=== PATIENT | female | born 1975 | race Caucasian/White ===

== ENCOUNTER 2016-09-15 19:40 | Emergency (ER) | payer OTHER ==
[2016-09-15 20:01] VITALS: BP 138/87
[2016-09-15] MEDS ORDERED: Ibuprofen 800 MG Tab PO ONE (20:20)
--- NOTE | 2016-09-15 20:30 | EDM.PDOC ---
ED HISTORY OF PRESENT ILLNESS - General Chief Complaint: Cardiovascular Problem Stated Complaint: HEART Time Seen by Provider: 09/15/16 20:15 Source: Reports: Patient History Limitations: Reports: No limitations - History of Present Illness INITIAL COMMENTS - FREE TEXT/NARRATIVE: Pt reports she developed fever, dry cough and sore throat this AM. She noted some palpitations and turned on her activity monitor on her wrist and device read 55 and then jumped up to 138. She has hx of asthma and albuterol inhaler on her person but she did not try this for symptoms today. Severity: mild Location, General: Reports: other (throat) Improves with: Reports: None Worsens with: Reports: None Context, General: Reports: Sick contact (works at [employer] and constant exposure to public) Associated Symptoms: Reports: cough, fever/chills, loss of appetite, nausea/ vomiting (nausea without vomiting) - Related Data Allergies/ADRs: Allergies Allergy/AdvReac Type Severity Reaction Status Date / Time No Known Allergies Allergy Verified 09/15/16 20:02 Home Meds: Home Meds Albuterol [Proair HFA] 2 puff INH Q4HR PRN 03/19/14 [History] Omeprazole [Prilosec] 20 mg PO DAILY 05/22/14 [History] Mometasone/Formoterol [Dulera 200 MCG/5 MCG] 2 puff INH BID 06/14/14 [History] Ibuprofen [Motrin] 800 mg PO Q8H PRN 07/02/15 [History] Ipratropium [Atrovent 0.06% Nasal Rapelje] 2 sprays DELON TID PRN 07/02/15 [History] Multivitamin [Multiple Vitamins] 1 tab PO BID 07/02/15 [History] Calcium Carbonate/Vitamin D3 [Calcium 500 mg Chewable Tablet] 1 tab PO BID 09/10 [History] Cyanocobalamin (Vitamin B12) [Vitamin B12] 1 tab SL DAILY 09/10/16 [History] Fluticasone Propionate [Flonase] 2 spray DELON DAILY 09/10/16 [History] L.acidoph,Paracasei, B.lactis [Probiotic] 1 tab PO DAILY 09/10/16 [History] Montelukast [Singulair] 1 tab PO BEDTIME 09/10/16 [History] Past Medical History Respiratory History: Reports: Asthma Gastrointestinal History: Reports: Cholelithiasis, Inflammatory bowel disease, Other (see below) Other Gastrointestinal History: Biliary dyskinesia. Abdominal pain with CT and contrast on 07/02/2015 LIVE IN COMPANION History: Reports: Other (see below) Other OB/BYN History: Dysplasia of cervix, low grade Musculoskeletal History: Reports: Arthritis, Back pain, chronic Endocrine/Metabolic History: Reports: Other (see below) Other Endocrine/Metabolic History: Found an adrenal mass and watching it for size change - Infectious Disease History Infectious Disease History: Reports: Chicken pox - Past Surgical History GI Surgical History: Reports: Cholecystectomy, Colonoscopy, Other (see below) Other GI Surgeries/Procedures: Inflammatory polyp - 2014 Female Surgical History: Reports: Tubal ligation Social & Family History - Family History Family Medical History: Noncontributory - Tobacco Use Smoking Status *Q: Never Smoker Years of Tobacco use: 26 Used Tobacco, but Quit: Yes Month Tobacco Last Used: april Second Hand Smoke Exposure: No - Caffeine Use Caffeine Use: Reports: None - Alcohol Use Days Per Week of Alcohol Use: 7 Number of Drinks Per Day: 2 Total Drinks Per Week: 14 - Recreational Drug Use Recreational Drug Use: Yes ED ROS GENERAL - Review of Systems Review Of Systems: See Below Constitutional: Reports: fever, chills, weakness HEENT: Reports: Rhinitis, Sinus problem, Throat pain (sore throat) Respiratory: Reports: Shortness of Breath, Cough. Denies: Wheezing, Sputum Cardiovascular: Reports: No symptoms Skin: Reports: no symptoms Neurological: Reports: Headache Psychiatric: Reports: No symptoms Immunologic: Reports: seasonal allergy ED EXAM, GENERAL - Physical Exam Exam: See Below Exam Limited By: No limitations General Appearance: alert, WD/WN, no apparent distress Eye Exam: bilateral eye: normal inspection, PERRL Ears: normal external exam, normal canal Ear Exam: bilateral ear: TM dull, TM bulging Nose: nasal drainage Throat/Mouth: Other (injection of posterior oropharynx without tonsils visible) Head: atraumatic, normocephalic Neck: normal inspection, supple, non-tender. No: lymphadenopathy (R), lymphadenopathy (L) Respiratory/Chest: no respiratory distress, no accessory muscle use, wheezing ( exp. faint on right), other (right chest wall tenderness with reproducible right arm pain with anterior/posterior chest palpation) Cardiovascular: normal peripheral pulses, regular rate, rhythm, no edema (trace bilateral ankle edema present at the sock line onlye), no murmur, no rub Peripheral Pulses: 3+: posterior tibial (L), posterior tibial (R), 4+: radial (L ), radial (R), dorsalis pedis (L), dorsalis pedis (R) GI/Abdominal: soft (obese) Back Exam: normal inspection Extremities: normal inspection Neurological: alert, oriented, CN II-XII intact, normal cognition, normal gait Psychiatric: normal affect, normal mood Skin Exam: Warm, Dry, Intact Course - Vital Signs Last Recorded V/S: Last Vital Signs Temp 38.0 C 09/15/16 20:52 Pulse 91 09/15/16 20:03 Resp 15 09/15/16 20:03 BP 138/87 09/15/16 20:03 Pulse Ox 99 09/15/16 20:03 - Orders/Labs/Meds Orders: Active Orders 24 hr Category Date Time Status CULTURE STREP A CONFIRMATION [] Stat Lab 09/15/16 20:56 Results STREP SCRN A RAPID W CULT CONF [] Stat Lab 09/15/16 20:56 Results Labs: Rapid strep test negative, culture pending. Influenza A/B negative. Meds: Medications Discontinued Medications Generic Name Dose Route Start Last Admin Trade Name Samirq PRN Reason Stop Dose Admin Ibuprofen 800 mg 09/15/16 20:20 09/15/16 20:52 Motrin PO 09/15/16 20:21 800 mg ONETIME ONE Administration - Re-Assessments/Exams Free Text/Narrative Re-Assessment/Exam: 09/15/16 21:31 Case reviewed in brief with ER attending, Officer. Departure - Departure Time of Disposition: 21:31 Disposition: Home, Self-Care 01 Preliminary Cause of *Q: sepsis & multi system organ failure Condition: good Clinical Impression: Radicular pain in right arm, Sore throat (viral), Influenza-like illness Fever Qualifiers: Fever type: due to other condition Qualified Code(s): R50.81 - Fever presenting with conditions classified elsewhere Instructions: Viral Respiratory Infection, [id number] Referrals: Talisha Matt MD [Primary Care Provider] - Forms: ED Department Discharge Additional Instructions: 1. Continue OTC medications for management of fever and symptoms. 2. Avoid decongestants, caffeine beverages and other stimulants when feeling unwell as these can cause increase in heart rate, palpitations. 3. Rest and avoid positions that cause right arm discomfort. 4. Followup with PCP as discussed if symptoms do not improve. You will be contacted if your strep culture is positive. - My Orders Last 24 Hours: My Active Orders 09/15/16 20:56 CULTURE STREP A CONFIRMATION [RM] Stat STREP SCRN A RAPID W CULT CONF [RM] Stat - Assessment/Plan Last 24 Hours: My Active Orders 09/15/16 20:56 CULTURE STREP A CONFIRMATION [RM] Stat STREP SCRN A RAPID W CULT CONF [RM] Stat
== END 2016-09-15 21:48 | disposition home or self-care (01) ==
LOC: JP.ED 19:40
DX: J11.1 Influenza due to unidentified influenza virus with other respiratory manifestations (principal); M79.601 Pain in right arm; Z79.899 Other long term (current) drug therapy; J45.909 Unspecified asthma, uncomplicated; Z98.890 Other specified postprocedural states
CPT/HCPCS: 87081; 87430; 87804; 99284; A9270

== ENCOUNTER 2024-07-01 08:20 | Day surgery (SDC) | payer OTHER ==
[~2024-07-01 08:20] MED LIST: Midazolam 1 MG/ML 2 ML SDV ONE; Propofol 200 MG/20 ML SDV ONE; fentaNYL 50 MCG/ML SDV ONE
[2024-07-01] MEDS: Lactated Ringers 1,000 ML IV SCH (09:09)
[2024-07-01 10:25] VITALS: PULSE 52
[2024-07-01 10:43] VITALS: BP 118/78
== END 2024-07-01 10:43 | disposition home or self-care (01) ==
LOC: JP.SDS 08:20
PROVIDERS: ATTEND Family Medicine
DX: Z12.11 Encounter for screening for malignant neoplasm of colon (principal); E66.9 Obesity, unspecified; Z80.0 Family history of malignant neoplasm of digestive organs
CPT/HCPCS: 45378; J2250; J2704; J3010; J7120